=== PATIENT | male | born 1950 | race Caucasian/White ===

== ENCOUNTER 2021-03-18 12:17 | Emergency (ER) | payer BC, OTHER ==
[~2021-03-18] VITALS: Ht 172.7 cm; Wt 104.3 kg
[~2021-03-18 12:17] MED LIST: NORCO5 PO
[2021-03-18 12:29] VITALS: BP_SYST 145
[2021-03-18 14:52] LABS: BILIRUBIN,URINE NEGATIVE (NEGATIVE); BLOOD, URINE NEGATIVE (NEGATIVE); CLARITY/URINE CLEAR (CLEAR); COLOR,URINE YELLOW (YELLOW); GLUCOSE,URINE NEGATIVE (NEGATIVE); KETONES,URINE NEGATIVE (NEGATIVE); LEUKOCYTE ESTERASE ,URINE NEGATIVE (NEGATIVE); NITRITE, URINE NEGATIVE (NEGATIVE); PH,URINE 6.5 (5.0-8.0); PROTEIN URINE NEGATIVE (NEGATIVE); UROBILINOGEN,URINE 0.2 (0.2-1.0)
[2021-03-18 15:40] LABS: BASOPHILS # (AUTO) 0.1 K/uL (0.0-0.2); BASOPHILS % (AUTO) 0.6 % (0.0-2.0); EOSINOPHILS # (AUTO) 0.2 K/uL (0.0-0.4); EOSINOPHILS % (AUTO) 2.1 % (0.0-4.0); HEMATOCRIT 41.1 % (36-54); HEMOGLOBIN 14.3 g/dL (14.0-18.0); LYMPHOCYTES # (AUTO) 2.2 K/uL (1.0-5.5); LYMPHOCYTES % (AUTO) 21.4 % (20.5-51.5); MEAN CORPUSCULAR HEMOGLOBIN 33 pg (27-31); MEAN CORPUSCULAR HGB CONC 35 % (32-36); MEAN CORPUSCULAR VOLUME 94 fL (79.0-98.0); MONOCYTES # (AUTO) 1.1 K/uL (0.0-1.0); MONOCYTES % (AUTO) 10.9 % (1.7-9.3); NEUTROPHILS # (AUTO) 6.6 K/uL (1.8-7.7); PLATELET COUNT (AUTO) 514 K/uL (130-430); RED BLOOD CELL COUNT(AUTO) 4.39 MIL/uL (4.2-6.2); RED CELL DISTRIBUTION WIDTH 13.5 % (9.0-15.0); WHITE BLOOD COUNT (AUTO) 10.1 K/uL (4.8-10.8)
[2021-03-18 16:05] LABS: CALCIUM 9.7 mg/dL (8.4-11.0); CREATININE 0.81 mg/dL (0.55-1.30)
[2021-03-18 16:23] LABS: ALBUMIN 3.9 g/dL (3.4-4.8); TOTAL BILIRUBIN 0.4 mg/dL (0.0-1.0)
[2021-03-18 16:24] LABS: C-REACTIVE PROTEIN QUANT 0.4 mg/dL (0-0.5)
[2021-03-18 17:01] LABS: INR 1.1 (0.80-1.20); PROTHROMBIN TIME 11.3 SECS (9.5-12.5)
[2021-03-18 17:06] VITALS: BP_SYST 137
== END 2021-03-18 17:07 | disposition home or self-care (01) ==
LOC: SED 12:17
DX: R33.9 Retention of urine, unspecified (principal); I48.91 Unspecified atrial fibrillation; Z88.8 Allergy status to other drugs, medicaments and biological substances; Z79.899 Other long term (current) drug therapy
CPT/HCPCS: 36415; 76376; 80053; 81003; 82150; 83605; 83690; 85025; 85610-TC; 85730-TC; 86140; 99284

== ENCOUNTER 2022-01-26 05:44 | Day surgery (SDC) | payer OTHER ==
[~2022-01-26] VITALS: Ht 172.7 cm; Wt 104.3 kg
[2022-01-26] MEDS ORDERED: CEFAZOLIN SOD 1 GM/ ISO 50 ML PREMIX IV ONE (07:00)
[2022-01-26 07:09] LABS: PROTHROMBIN TIME 10.4 SECS (9.5-12.5)
[2022-01-26] MEDS ORDERED: PROPOFOL 200MG/ 20ML VIAL (DIPRIVAN) IV ONE (07:45)
[2022-01-26] MEDS ORDERED: DEXAMETHASONE SOD PHOSPHATE 4 MG/ML VIAL IVP ONE (07:45)
[2022-01-26] MEDS ORDERED: LIDOCAINE PATCH 5% 1 EA TP ONE (07:45)
[2022-01-26] MEDS ORDERED: LR 1,000 ML IV.SOLN IV ONE (07:45)
[2022-01-26] MEDS ORDERED: ONDANSETRON HCL 4 MG/2 ML VIAL IVP ONE (07:45)
[2022-01-26] MEDS ORDERED: SEVOFLURANE 15 MIN GAS INH ONE (07:45)
[2022-01-26] MEDS ORDERED: NS IRRIG SOLN 5000 ML IR ONE (07:45)
[2022-01-26] MEDS ORDERED: NS IRRIG SOLN 1000 ML IR ONE (07:45)
[2022-01-26] MEDS ORDERED: MEPERIDINE 50 MG/ML VIAL IM ONE (07:45)
[2022-01-26] MEDS ORDERED: HYDROmorphone 1 MG/ML INJ. CARTRIDGE IVP PRN (08:30)
[2022-01-26] MEDS ORDERED: LR 1,000 ML IV SCH (08:30)
[2022-01-26] MEDS ORDERED: ONDANSETRON HCL 4 MG/2 ML VIAL IVP PRN (08:30)
[2022-01-26] MEDS ORDERED: METOCLOPRAMIDE HCL 10 MG/2 ML VIAL IVP PRN (08:30)
[2022-01-26] MEDS ORDERED: MEPERIDINE HCL/PF 25 MG/ML DISP.SYRIN IVP PRN (08:30)
[2022-01-26 11:33] VITALS: BP_SYST 149
== END 2022-01-26 11:20 | disposition home or self-care (01) ==
LOC: SDS 05:44
PROVIDERS: ATTEND Urology
DX: N40.1 Benign prostatic hyperplasia with lower urinary tract symptoms (principal); R35.1 Nocturia; I48.91 Unspecified atrial fibrillation; E66.9 Obesity, unspecified; E78.5 Hyperlipidemia, unspecified; M06.9 Rheumatoid arthritis, unspecified; Z68.35 Body mass index [BMI] 35.0-35.9, adult; Z79.899 Other long term (current) drug therapy; Z79.01 Long term (current) use of anticoagulants; Z20.822 Contact with and (suspected) exposure to COVID-19
CPT/HCPCS: 36415 ×2; 52601; 85610; 85730; U0003; J0690; J1100; J2405; J2704; J2175; J7120

== ENCOUNTER 2022-11-15 05:40 | Inpatient (IN) | payer OTHER ==
[~2022-11-15] VITALS: Ht 172.7 cm; Wt 108.9 kg
[2022-11-15] MEDS ORDERED: SCOPOLAMINE HYDROBROMIDE 1 MG PATCH .72 H (TRANSDERM-SCOP) TD ONE ×2 (05:54→06:00)
[2022-11-15] MEDS ORDERED: ACETAMINOPHEN 500 MG TABLET ONE (05:54)
[2022-11-15] MEDS ORDERED: oxyCODONE HCL 10 MG TAB.ER.12H PO ONE ×2 (05:55→06:00)
[2022-11-15] MEDS ORDERED: GABAPENTIN 300 MG CAPSULE ONE (05:55)
[2022-11-15] MEDS ORDERED: CEFAZOLIN SOD 2 GM in D5W 50 ML IV ONE (06:00)
[2022-11-15] MEDS ORDERED: ACETAMINOPHEN 500 MG TABLET PO ONE (06:00)
[2022-11-15] MEDS ORDERED: GABAPENTIN 300 MG CAPSULE PO ONE (06:00)
[2022-11-15] MEDS ORDERED: NALOXONE HCL 0.4 MG/ML AMP (NARCAN) IVP PRN ×4 (07:15→08:45)
[2022-11-15] MEDS ORDERED: METOCLOPRAMIDE HCL 10 MG/2 ML VIAL IVP PRN ×2 (07:15→08:45)
[2022-11-15] MEDS ORDERED: DIPHENHYDRAMINE HCL 25 MG CAPSULE PO PRN (07:15)
[2022-11-15] MEDS ORDERED: LACTULOSE 20 GM/30 ML UDC PO PRN (07:15)
[2022-11-15] MEDS ORDERED: BISACODYL 10 MG/SUPPOSITORY RC PRN (07:15)
[2022-11-15] MEDS ORDERED: BUPIVACAINE /PF 0.25% 30 ML VIAL INJ ONE (07:30)
[2022-11-15] MEDS ORDERED: PROPOFOL 200MG/ 20ML VIAL (DIPRIVAN) IV ONE (07:30)
[2022-11-15] MEDS ORDERED: ONDANSETRON HCL 4 MG/2 ML VIAL ONE (07:30)
[2022-11-15] MEDS ORDERED: ePHEDrine sulfate 50 MG/ML VIAL ONE (07:30)
[2022-11-15] MEDS ORDERED: MORPHINE SULFATE 10MG/10ML PF AMP ONE (07:30)
[2022-11-15] MEDS ORDERED: VANCOMYCIN HCL 1000 MG/VIAL IV ONE (07:30)
[2022-11-15] MEDS ORDERED: NS 1000 ML IV.SOLN IV ONE (07:30)
[2022-11-15] MEDS ORDERED: MIDAZOLAM HCL/PF 2 MG/2 ML SYRINGE ONE (07:30)
[2022-11-15] MEDS ORDERED: NS IRRIG SOLN 1000 ML IR ONE (07:30)
[2022-11-15] MEDS ORDERED: DEXAMETHASONE SOD PHOSPHATE 4 MG/ML VIAL ONE (07:30)
[2022-11-15] MEDS ORDERED: SEVOFLURANE 15 MIN GAS INH ONE (07:30)
[2022-11-15] MEDS ORDERED: LIDOCAINE 2%, 20 ML MDV ONE (07:30)
[2022-11-15] MEDS ORDERED: KETOROLAC TROMETHAMINE 30 MG VIAL ONE (07:30)
[2022-11-15] MEDS ORDERED: LABETALOL 100 MG/ 20ML VIAL IVP PRN (08:45)
[2022-11-15] MEDS ORDERED: HYDROmorphone 1 MG/ML INJ. CARTRIDGE IVP PRN ×5 (08:45→11:00)
[2022-11-15] MEDS ORDERED: LR 1,000 ML IV SCH (08:45)
[2022-11-15] MEDS ORDERED: DIPHENHYDRAMINE INJ 50 MG/ML VIAL IVP PRN (08:45)
[2022-11-15] MEDS ORDERED: hydrALAZINE HCL 20 MG/ML VIAL IVP PRN (08:45)
[2022-11-15] MEDS ORDERED: ONDANSETRON HCL 4 MG/2 ML VIAL IVP PRN ×2 (08:45→11:45)
[2022-11-15] MEDS ORDERED: MEPERIDINE HCL/PF 25 MG/ML DISP.SYRIN IVP PRN (08:45)
[2022-11-15] MEDS ORDERED: oxyCODONE HCL 5 MG TABLET PO PRN ×2 (11:00)
[2022-11-15] MEDS ORDERED: traMADol HCL HCL 50 MG TABLET (ULTRAM) PO PRN (11:00)
[2022-11-15] MEDS ORDERED: LORATADINE 10 MG TABLET PO PRN (11:00)
[2022-11-15] MEDS ORDERED: APIX5TAB PO (11:37)
[2022-11-15] MEDS ORDERED: PROP150T3 PO (11:37)
[2022-11-15] MEDS ORDERED: FURO-149 PO (11:37)
[2022-11-15] MEDS ORDERED: SILD20TA PO (11:37)
[2022-11-15] MEDS ORDERED: CARI350T27 PO (11:37)
[2022-11-15] MEDS ORDERED: AMOX500C2 PO (11:37)
[2022-11-15] MEDS ORDERED: VALS80TA2 PO (11:37)
[2022-11-15] MEDS ORDERED: HYDR-3921 PO (11:37)
[2022-11-15] MEDS ORDERED: FINA5TAB3 PO (11:37)
[2022-11-15] MEDS ORDERED: NAPR-688 PO (11:37)
--- NOTE | 2022-11-15 12:00 | NUR ---
post op opening recieved pt from post op of l total knee is alert oriented, moves toes, no tingling no numbness, cold pack in place, dressing clean dry intact.pt instructed to call for any needs, not to get out of bed without asst. bed alarm on, fall precautions in place, call light within reach
--- NOTE | 2022-11-15 12:30 | NUR ---
physical therapy physical therapy here to give eval, pt up out of bed ambulating in room with physical therapy ua walker, pt returned to bed, tolerated well, no c/o pain, no sob, fall precautions in place, call light with in reach
[2022-11-15 12:57] VITALS: BP_SYST 133; PULSE 84; O2SAT 98
[2022-11-15 13:02] VITALS: BP_SYST 125; PULSE 89; RESP 22; TEMP 98.5
[2022-11-15] MEDS: KETOROLAC TROMETHAMINE 10 MG TABLET (TORADOL) PO SCH ×2 (14:00→21:51)
[2022-11-15] MEDS: ceFAZolin SODIUM 2 GM in D5W 50 ML IV SCH ×2 (14:04→21:45)
--- NOTE | 2022-11-15 15:00 | NUR ---
rounds pt asleep, rouses easily to name, no c/o pain, call light within reach, pt educated on not getting out of bed unless he call first.pt verbalizes understanding.
[2022-11-15 16:53] VITALS: BP_SYST 126; PULSE 97; RESP 14; TEMP 98.8; O2SAT 98
--- NOTE | 2022-11-15 17:30 | NUR ---
comfort pt states he has no pain or discomfort, lying in bed able to wiggle toestingling, no pain.
--- NOTE | 2022-11-15 18:55 | NUR ---
activity assisted pt ambulating to the rest room gait steady, no c/o pain or discomfort.pt returned to bed, call light with inreach
[2022-11-15] MEDS ORDERED: carisoprodoL 350 MG TABLET PO PRN (19:00)
[2022-11-15] MEDS: ACETAMINOPHEN 500 MG TABLET PO SCH ×2 (19:02→21:52)
--- NOTE | 2022-11-15 19:10 | NUR ---
closing care transferred to next shift, pt resting comfortably d call light within reach
--- NOTE | 2022-11-15 19:15 | NUR ---
Opening Notes Received report from Dayshift nurse at bedside, Patient received in bed, family at bed side, PT is A/O x4. No s/s of acute distress, patient denies any pain. Breathing is even and unlabored. Iv in RFA 22g is patent, no signs of infiltration or infection noted. Patient is ambulatory with walker, L knee replacement done today. Patient denies any pain on the knee and toes are warm with movement. Skin is warm and dry to touch, Call light with patient, Bed alarm on, bed is locked and at lowest position. Will continue to monitor.
[2022-11-15 20:00] VITALS: BP_SYST 134; PULSE 82; RESP 16; TEMP 97.6; O2SAT 95; O2SAT 98
[2022-11-15] MEDS: SENNOSIDES/DOCUSATE SODIUM 1 TAB TABLET(SENOKOT-S) PO SCH (20:22)
[2022-11-15] MEDS: PROPAFENONE HCL 150 MG TABLET PO SCH (20:22)
--- NOTE | 2022-11-15 21:25 | NUR ---
ROUNDS Patient is in bed, asking to use the restroom. Helped ambulate to the restroom, patient is not c/o of any pain. Pt is now back in bed, toes have movement and warm to touch. Pt is now resting in bed, call light is within reach and pt educated on the use of call light so nurse can help with ambulation to the restroom. Bed alarm is on, bed is at the lowest position and locked. Will continue to monitor.
[2022-11-16 00:26] VITALS: BP_SYST 116; PULSE 86; RESP 17; TEMP 96.7
[2022-11-16 05:16] LABS: BASOPHILS % (AUTO) 0.1 % (0.0-2.0); EOSINOPHILS % (AUTO) 0.1 % (0.0-4.0); HEMATOCRIT 36.3 % (36-54); HEMOGLOBIN 12.1 g/dL (14.0-18.0); LYMPHOCYTES # (AUTO) 1.3 K/uL (1.0-5.5); LYMPHOCYTES % (AUTO) 9.3 % (20.5-51.5); MEAN CORPUSCULAR HEMOGLOBIN 32 pg (27-31); MEAN CORPUSCULAR HGB CONC 33 % (32-36); MEAN CORPUSCULAR VOLUME 96 fL (79.0-98.0); MONOCYTES # (AUTO) 1.3 K/uL (0.0-1.0); MONOCYTES % (AUTO) 9.3 % (1.7-9.3); NEUTROPHILS # (AUTO) 11.7 K/uL (1.8-7.7); NEUTROPHILS % (AUTO) 81.2 % (40.0-70.0); PLATELET COUNT (AUTO) 410 K/uL (130-430); RED CELL DISTRIBUTION WIDTH 13.2 % (9.0-15.0); WHITE BLOOD COUNT (AUTO) 14.5 K/uL (4.8-10.8)
[2022-11-16 05:32] LABS: CALCIUM 7.9 mg/dL (8.4-11.0); CREATININE 0.92 mg/dL (0.55-1.30)
[2022-11-16] MEDS: ceFAZolin SODIUM 2 GM in D5W 50 ML IV SCH (06:55)
[2022-11-16] MEDS ORDERED: TAMSULOSIN HCL 0.4 MG CAP PO ONE (07:00)
[2022-11-16] MEDS: ACETAMINOPHEN 500 MG TABLET PO SCH ×2 (07:05→13:44)
[2022-11-16] MEDS: KETOROLAC TROMETHAMINE 10 MG TABLET (TORADOL) PO SCH (07:09)
--- NOTE | 2022-11-16 07:11 | NUR ---
Closing Rounds Patient is in bed, having trouble urinating. Flomax ordered per MD. AM shift notified during report at bedside. Patient is now in bed, AM medications given. Patient shows now s/s of acute discomfort stated, call light within reach, bed is lowered and locked. Bed alarm is on.
[2022-11-16 07:47] VITALS: BP_SYST 150; PULSE 86; RESP 20; TEMP 98; O2SAT 97
[2022-11-16 08:00] VITALS: O2SAT 98
[2022-11-16] MEDS: SENNOSIDES/DOCUSATE SODIUM 1 TAB TABLET(SENOKOT-S) PO SCH (08:15)
[2022-11-16] MEDS: PROPAFENONE HCL 150 MG TABLET PO SCH (08:15)
[2022-11-16] MEDS ORDERED: APIXABAN 2.5 MG TABLET PO SCH (09:00)
[2022-11-16] MEDS ORDERED: FUROSEMIDE 40 MG TABLET PO SCH (09:00)
[2022-11-16] MEDS ORDERED: FINASTERIDE 5 MG TABLET (PROSCAR) PO SCH (09:00)
[2022-11-16] MEDS ORDERED: LOSARTAN POTASSIUM 25 MG TABLET PO SCH (09:00)
[2022-11-16] MEDS ORDERED: DECADRON 4 MG TABLET PO SCH (09:00)
[2022-11-16] MEDS ORDERED: VALSARTAN Non-Formulary 80 MG TABLET PO SCH (09:00)
[2022-11-16 12:00] VITALS: BP_SYST 118; PULSE 88; RESP 20; TEMP 97; O2SAT 94
[2022-11-16 13:30] VITALS: BP_SYST 120; PULSE 88; RESP 18; TEMP 98.1; O2SAT 98
--- NOTE | 2022-11-16 14:20 | NUR ---
DISCHARGE Pt has been ambulating from bed to restroom with FWW all shift independently. Pt's tele unit was dc'd 1110am, and returned to air sampling and monitoring. Left knee dressing CDI all shift. Pt's IV in Right hand was dc', site benign. no swelling/redness or tenderness at site noted. Pt was checked on q1' and PRN all shift for needs and care. Pt was maintained with safety precautions all shift. Pt given discharge instructions and questions/concerns were answered. Pt stable. Pt dressed in street clothes and packed all belongings. Pt and his checked side table and drawers for belongings. Pain in left knee tolerable all shift. Pt off the floor via wheelchair with all his belongings and discharge paperwork to private car with his by side.
--- NOTE | 2022-11-16 15:04 | NUR ---
PHYSICAL THERAPY CO-SIGN The Physical Therapy Progress Notes documented by Railroad Surveyor have been reviewed. Reviewed/Co-Signed by: Tunde Hernandes Documentation Done by:PORFIRIO JORDAN Addendum: 11/16/22 at 1505 by Tunde Hernandes PT Amended: Links added.
== END 2022-11-16 14:20 | disposition home health service (06) | DRG 470 ==
LOC: SMU 05:40 → STU 09:50 → SMU 11-16 13:20
PROVIDERS: ADMIT Student in an Organized Health Care Education/Training Program; ATTEND Student in an Organized Health Care Education/Training Program
PROC: 0SRD0J9 Replacement of Left Knee Joint with Synthetic Substitute, Cemented, Open Approach (ICD-10-PCS; principal; 2022-11-15 07:43)
DX: M17.12 Unilateral primary osteoarthritis, left knee (principal); Z79.891 Long term (current) use of opiate analgesic; Z79.899 Other long term (current) drug therapy; Z79.01 Long term (current) use of anticoagulants
CPT/HCPCS: 36415; 73560-TC; 80048; 85025; 87081; 88305; 88311; 94010; 96379; 97110-GP; 97116-GP; 97163-GP; C1713; C1776; G0378; J0690; J1100; J1885; J2001; J2274; J2405; J2704; J3370; J3465; J3490; J7030; J7060; J7120; J8540

== ENCOUNTER 2022-11-21 13:21 | Emergency (ER) | payer OTHER ==
[~2022-11-21] VITALS: Ht 172.7 cm; Wt 112.9 kg
[~2022-11-21 13:21] MED LIST changes: +AMOX500C2 PO; +APIX5TAB PO; +CARI350T27 PO; +FINA5TAB3 PO; +FURO-149 PO; +HYDR-3921 PO; +NAPR-688 PO; +PROP150T3 PO; +SILD20TA PO; +VALS80TA2 PO
[2022-11-21 13:33] VITALS: BP_SYST 142; PULSE 91; RESP 18; TEMP 97.1; O2SAT 97
[2022-11-21] MEDS ORDERED: KETOROLAC TROMETHAMINE 30 MG VIAL IM ONE (14:30)
[2022-11-21] MEDS ORDERED: LORazepam 1 MG TABLET PO ONE (15:00)
[2022-11-21 15:14] LABS: BASOPHILS % (AUTO) 0.5 % (0.0-2.0); EOSINOPHILS # (AUTO) 0.2 K/uL (0.0-0.4); EOSINOPHILS % (AUTO) 2.3 % (0.0-4.0); HEMATOCRIT 37.4 % (36-54); HEMOGLOBIN 12.4 g/dL (14.0-18.0); LYMPHOCYTES # (AUTO) 1.6 K/uL (1.0-5.5); MEAN CORPUSCULAR HEMOGLOBIN 32 pg (27-31); MEAN CORPUSCULAR HGB CONC 33 % (32-36); MEAN CORPUSCULAR VOLUME 96 fL (79.0-98.0); MONOCYTES # (AUTO) 0.8 K/uL (0.0-1.0); MONOCYTES % (AUTO) 8.3 % (1.7-9.3); NEUTROPHILS # (AUTO) 7.3 K/uL (1.8-7.7); NEUTROPHILS % (AUTO) 72.9 % (40.0-70.0); PLATELET COUNT (AUTO) 550 K/uL (130-430); RED BLOOD CELL COUNT(AUTO) 3.88 MIL/uL (4.2-6.2); RED CELL DISTRIBUTION WIDTH 13.2 % (9.0-15.0); WHITE BLOOD COUNT (AUTO) 9.9 K/uL (4.8-10.8)
[2022-11-21 15:33] LABS: CALCIUM 8.5 mg/dL (8.4-11.0); CREATININE 0.9 mg/dL (0.55-1.30); POTASSIUM 3.4 mmol/L (3.5-5.1)
[2022-11-21 15:38] LABS: ALBUMIN 3.1 g/dL (3.4-4.8); TOTAL BILIRUBIN 0.6 mg/dL (0.0-1.0); TOTAL PROTEIN, SERUM 6.9 g/dL (6.4-8.3)
[2022-11-21] MEDS ORDERED: NACL 0.9% 2,000 ML IV ONE (16:15)
[2022-11-21 16:46] LABS: BILIRUBIN,URINE NEGATIVE (NEGATIVE); BLOOD, URINE NEGATIVE (NEGATIVE); CLARITY/URINE CLEAR (CLEAR); COLOR,URINE YELLOW (YELLOW); GLUCOSE,URINE NEGATIVE (NEGATIVE); KETONES,URINE NEGATIVE (NEGATIVE); LEUKOCYTE ESTERASE ,URINE NEGATIVE (NEGATIVE); NITRITE, URINE NEGATIVE (NEGATIVE); PROTEIN URINE NEGATIVE (NEGATIVE); UROBILINOGEN,URINE 0.2 (0.2-1.0)
[2022-11-21 17:20] LABS: PROTHROMBIN TIME 10.8 SECS (9.5-12.5)
[2022-11-21 18:48] VITALS: BP_SYST 140; PULSE 74; RESP 20; TEMP 98; O2SAT 98
== END 2022-11-21 18:48 | disposition home or self-care (01) ==
LOC: SED 13:21
DX: R33.9 Retention of urine, unspecified (principal); G89.18 Other acute postprocedural pain; R39.198 Other difficulties with micturition; Z88.3 Allergy status to other anti-infective agents; Z79.899 Other long term (current) drug therapy
CPT/HCPCS: 99285; 93971; 71045; 80053; 85025; 85610; 85730; 87040; 87086; 84484; 36415; 93005; 96372; 83605; 81003; J1885